=== PATIENT | male | born 1955 | race Caucasian/White ===

== ENCOUNTER 2016-12-29 19:47 | Emergency (ER) | payer BC ==
--- NOTE | 2016-12-29 19:54 | EDM.PDOC ---
ED HPI GI/ABDOMINAL - General Chief Complaint: Abdominal Pain Stated Complaint: POSS KIDNEY STONE Time Seen by Provider: 12/29/16 19:54 - History of Present Illness INITIAL COMMENTS - FREE TEXT/NARRATIVE: 61-year-old male presents to the emergency room with abdominal pain. Patient was diagnosed with a right-sided kidney stone on Tuesday of this week. He 's had problems with kidney stones in the past. In the past urology has needed to be involved to remove the stones. The patient had a CAT scan done on Tuesday which showed an obstructing stone midway down the right ureter entering 3.8 mm he has nonobstructing stones noted in both kidneys he has a single nonobstructing stone on the right small 3 nonobstructing stones on the left largest measuring 6.3 mm. Patient had worsening pain today. Patient's been taking ketorolac 10 mg by mouth as needed for pain and this has not helped and over time. Today the patient had worsening pain 11:00 this morning this is continued to this time he's had 2 episodes of vomiting. The pain is all right-sided he denies any fevers but has felt chilled at times. Past medical history significant for gout he takes allopurinol. He has BPH and takes Flomax 0.4mg 2 tablets daily. - Related Data Allergies/ADRs: Allergies Allergy/AdvReac Type Severity Reaction Status Date / Time No Known Allergies Allergy Verified 12/29/16 19:53 Home Meds: Home Meds Allopurinol [Zyloprim] 300 mg PO DAILY 12/29/16 [History] Ciprofloxacin HCl [Cipro] 250 mg PO BID #14 tablet 12/29/16 [Rx] Tamsulosin HCl [Flomax] 0.4 mg PO DAILY 12/29/16 [History] ED ROS GENERAL - Review of Systems Review Of Systems: See Below Constitutional: Reports: chills (Noted just before and after vomiting). Denies : fever, night sweats, diaphoresis HEENT: Reports: No symptoms Respiratory: Reports: No Symptoms Cardiovascular: Reports: No symptoms GI/Abdominal: Reports: Abdominal pain, Nausea, Vomiting. Denies: Constipation, Diarrhea : Reports: flank pain. Denies: frequency, hematuria, incontinence, urgency Skin: Reports: no symptoms Neurological: Reports: No Symptoms ED EXAM, GI/ABD - Physical Exam Exam: See Below Exam Limited By: No limitations General Appearance: alert, no apparent distress Head: atraumatic, normocephalic Neck: normal inspection, supple, non-tender, full range of motion. No: lymphadenopathy (L), lymphadenopathy (R) Respiratory/Chest: no respiratory distress, lungs clear, normal breath sounds Cardiovascular: regular rate, rhythm, no edema, no murmur GI/Abdominal: normal bowel sounds, soft, other (Patient has right-sided abdominal pain but this has not worsened with palpation no rebound or guarding noted) Back Exam: normal inspection. No: CVA tenderness (L), CVA tenderness (R) Extremities: normal inspection, no pedal edema Course - Vital Signs Last Recorded V/S: Last Vital Signs Temp 36.6 C 12/29/16 19:53 Pulse 88 12/29/16 19:53 Resp 14 12/29/16 19:53 BP 123/85 12/29/16 19:53 Pulse Ox 94 L 12/29/16 19:53 - Orders/Labs/Meds Orders: Active Orders 24 hr Category Date Time Status CULTURE URINE [RM] Stat Lab 12/29/16 20:10 Received Lactated Ringers [Ringers, Lactated] 1,000 ml Med 12/29/16 20:15 Active IV ASDIRECTED Medication Orders Lactated Ringer's (Ringers, Lactated) 1,000 mls @ 125 mls/hr IV ASDIRECTED STEPHANY Last Admin: 12/29/16 20:26 Dose: 125 mls/hr Labs: Laboratory Tests 12/29/16 12/29/16 12/29/16 Range/Units 20:10 20:27 20:27 WBC 11.62 H (4.23-9.07) K/mm3 RBC 5.10 (4.63-6.08) M/mm3 Hgb 15.9 (13.7-17.5) gm/L Hct 44.6 (40.1-51.0) % MCV 87.5 (79.0-92.2) fl MCH 31.2 (25.7-32.2) pg MCHC 35.7 H (32.2-35.5) g/dl RDW Std Deviation 43.1 (35.1-43.9) fL Plt Count 136 L (163-337) K/mm3 MPV 10.6 (9.4-12.3) fl Neutrophils % (Manual) 87 H (40-60) % Band Neutrophils % 0 (0-10) % Lymphocytes % (Manual) 7 L (20-40) % Atypical Lymphs % 1 % Monocytes % (Manual) 4 (2-10) % Eosinophils % (Manual) 0 L (0.8-7.0) % Basophils % (Manual) 1 (0.2-1.2) Platelet Estimate Adequate Plt Morphology Comment Normal RBC Morph Comment Normal Sodium 136 (136-145) mEq/L Potassium 4.3 (3.5-5.1) mEq/L Chloride 101 (98-107) mEq/L Carbon Dioxide 25 (21-32) mEq/L Anion Gap 14.3 (5-15) BUN 11 (7-18) mg/dL Creatinine 1.6 H (0.7-1.3) mg/dL Est Cr Clr Drug Dosing 44.76 mL/min Estimated GFR (MDRD) 44 (>60) mL/min BUN/Creatinine Ratio 6.9 L (14-18) Glucose 114 (80-115) mg/dL Calcium 8.5 (8.5-10.1) mg/dL Total Bilirubin 1.7 H (0.2-1.0) mg/dL AST 20 (15-37) U/L ALT 26 (16-63) U/L Alkaline Phosphatase 69 (46-116) U/L Total Protein 7.1 (6.4-8.2) g/dl Albumin 4.0 (3.4-5.0) g/dl Globulin 3.1 gm/dL Albumin/Globulin Ratio 1.3 (1-2) Urine Color Light yellow (Yellow) Urine Appearance Clear (Clear) Urine pH 7.0 (5.0-8.0) Ur Specific [place] 1.015 (1.005-1.030) Urine Protein Negative (Negative) Urine Glucose (UA) Negative (Negative) Urine Ketones Negative (Negative) Urine Occult Blood Negative (Negative) Urine Nitrite Negative (Negative) Urine Bilirubin Negative (Negative) Urine Urobilinogen 0.2 (0.2-1.0) Ur Leukocyte Esterase Trace H (Negative) Urine RBC Not seen (0-5) /hpf Urine WBC 0-5 (0-5) /hpf Ur Squamous Epith Cells Not seen (0-5) /hpf Urine Bacteria Rare (FEW) /hpf Urine Mucus Not seen (FEW) /hpf Meds: Medications Generic Name Dose Route Start Last Admin Trade Name Dm PRN Reason Stop Dose Admin Lactated Ringer's 1,000 mls @ 125 mls/hr 12/29/16 20:15 12/29/16 20:26 Ringers, Lactated IV 125 mls/hr ASDIRECTED STEPHANY Administration Discontinued Medications Generic Name Dose Route Start Last Admin Trade Name [place] PRN Reason Stop Dose Admin Hydrocodone Bitart/Acetaminophen 1 tab 12/29/16 20:20 12/29/16 20:53 [place] 325-5 Mg PO 12/29/16 20:21 1 tab ONETIME ONE Administration Fentanyl 50 mcg 12/29/16 20:20 12/29/16 20:32 Sublimaze IVPUSH 12/29/16 20:21 50 mcg ONETIME ONE Administration Levofloxacin 250 mg 12/29/16 21:41 12/29/16 21:46 Levaquin PO 12/29/16 21:42 250 mg ONETIME ONE Administration Ondansetron HCl 4 mg 12/29/16 20:20 12/29/16 20:32 Zofran IVPUSH 12/29/16 20:21 4 mg ONETIME ONE Administration - Re-Assessments/Exams Free Text/Narrative Re-Assessment/Exam: 12/29/16 21:55 Patient had lab work obtained his CT from Tuesday was reviewed which revealed a 3.8 mm stone midway down the right ureter he has nonobstructing stones noted in both kidneys. Patient is still symptomatic. Of concern is his creatinine is elevated to 1.6 from 1.1 on Tuesday his ketorolac will be stopped. The patient was started on IV fluids was given Zofran here 50 mcg of fentanyl and a single [place] and feels pretty good at this point. Case discussed with Dr. Nolan transfer station attendant urologist in [place] who recommends followup with his primary on Tuesday we will start him on [place] stop the ketorolac. His urinalysis is not diagnostic of a UTI that may be suggestive urine culture pending patient will be started on Cipro 250 mg twice a day. He is given [place] #20 one or 2 every 4-6 hours when necessary from the machine in the waiting room as well as Zofran 4 mg #10 one every 4-6 hours as needed for nausea and vomiting. Departure - Departure Time of Disposition: 21:47 Disposition: Home, Self-Care 01 Clinical Impression: Right nephrolithiasis Prescriptions: Ciprofloxacin HCl [Cipro] 250 mg PO BID #14 tablet Referrals: Artur Solares MD [Primary Care Provider] - Forms: ED Department Discharge Additional Instructions: Return to emergency room if any questions or problems. Return immediately with the development of fevers or chills or uncontrollable pain. Drink plenty of fluids. Stop the ketorolac, this is the medication your given Tuesday for pain. You have been started on hydrocodone take one or 2 every 4-6 hours as needed for pain. Allow 12 hours after using this medication before driving or returning to work. This medication can cause constipation if using this on a regular basis start Colace 100 mg twice daily, this can be picked up over-the- counter. You been given Zofran one tablet it will dissolve on or under your tongue every 4-6 hours as needed for nausea or vomiting. Followup in the clinic on Tuesday for recheck your kidney function should be rechecked. - My Orders Last 24 Hours: My Active Orders 12/29/16 20:10 CULTURE URINE [RM] Stat 12/29/16 20:15 Lactated Ringers [Ringers, Lactated] 1,000 ml IV ASDIRECTED - Assessment/Plan Last 24 Hours: My Active Orders 12/29/16 20:10 CULTURE URINE [RM] Stat 12/29/16 20:15 Lactated Ringers [Ringers, Lactated] 1,000 ml IV ASDIRECTED
[2016-12-29 20:00] VITALS: BP 123/85
[2016-12-29] MEDS ORDERED: Lactated Ringers 1,000 ML IV SCH (20:15)
[2016-12-29] MEDS ORDERED: fentaNYL 100 MCG/2 ML SDV IVPUSH ONE (20:20)
[2016-12-29] MEDS ORDERED: Acetaminophen/HYDROcodone 325-5 MG Tab PO ONE (20:20)
[2016-12-29] MEDS ORDERED: Ondansetron 4 MG/2 ML SDV IVPUSH ONE (20:20)
[2016-12-29] MEDS ORDERED: Levofloxacin 250 MG Tab PO ONE (21:41)
== END 2016-12-29 22:11 | disposition home or self-care (01) ==
LOC: JD.ED 19:47
DX: M10.9 Gout, unspecified (principal); Z79.899 Other long term (current) drug therapy; N20.0 Calculus of kidney; Z87.442 Personal history of urinary calculi
CPT/HCPCS: 36415; 80053; 81001; 85025; 87086; 96361; 96374; 96375; 99284; A9270; J2405; J3010; J7120

== ENCOUNTER 2020-06-29 18:14 | Emergency (ER) | payer BC, MEDICARE ==
[2020-06-29 18:28] VITALS: PULSE 119
[2020-06-29] MEDS ORDERED: Sodium Chloride 0.9% 10 ML Syringe FLUSH PRN (18:30)
[2020-06-29] MEDS ORDERED: Acetaminophen 325 MG Tab PO ONE (19:21)
--- NOTE | 2020-06-29 19:21 | EDM.PDOC ---
ED HPI GENERAL MEDICAL PROBLEM - General Chief Complaint: Respiratory Problem Stated Complaint: headache tired nausea Time Seen by Provider: 06/29/20 18:28 Source of Information: Reports: Patient History Limitations: Reports: No Limitations - History of Present Illness INITIAL COMMENTS - FREE TEXT/NARRATIVE: Patient is a 64-year-old male presenting to the emergency department with complaints of headache, generalized fatigue, intermittent fevers, shortness of breath with exertion, and occasional nausea. States his symptoms began on Tuesday which is about 5 days ago. He was in [place] about 1 week before the symptoms began. He denies any significant cough but states that when he does cough it is dry and nonproductive. Denies significant shortness of breath while at rest. He has no chronic underlying lung or heart conditions. No one else in his family is sick at this point. Headache Pain Score (Numeric/FACES): 3 - Related Data Allergies Allergy/AdvReac Type Severity Reaction Status Date / Time No Known Allergies Allergy Verified 12/29/16 19:53 Home Meds: Home Meds Allopurinol [Zyloprim] 300 mg PO DAILY 12/29/16 [History] Tamsulosin HCl [Flomax] 0.4 mg PO DAILY 12/29/16 [History] Glucosam/Chondr/Collagn/Hyalur [Glucosamine & Chondroitin Cap] 1 tab PO BID 06/29/20 [History] Multivitamin [Multivitamins] 1 tab PO DAILY 06/29/20 [History] dexAMETHasone [Dexamethasone] 8 mg PO Q12H 3 Days #6 tab 06/29/20 [Rx] Past Medical History HEENT History: Reports: Hard of Hearing, Impaired Vision Genitourinary History: Reports: BPH, Renal Calculus Musculoskeletal History: Reports: Arthritis - Infectious Disease History Infectious Disease History: Reports: Chicken Pox, Measles, Mumps, Shingles - Past Surgical History GI Surgical History: Reports: Cholecystectomy Social & Family History - Family History Family Medical History: Noncontributory - Tobacco Use Smoking Status *Q: Never Smoker - Caffeine Use Caffeine Use: Reports: Tea - Recreational Drug Use Recreational Drug Use: No ED ROS GENERAL - Review of Systems Review Of Systems: See Below Constitutional: Reports: Fever, Chills, Fatigue HEENT: Reports: No Symptoms Respiratory: Reports: Shortness of Breath, Cough. Denies: Wheezing, Pleuritic Chest Pain Cardiovascular: Reports: Dyspnea on Exertion. Denies: Chest Pain, Lightheadedness, Syncope Endocrine: Reports: No Symptoms GI/Abdominal: Reports: Nausea. Denies: Abdominal Pain, Diarrhea, Vomiting : Reports: No Symptoms Musculoskeletal: Reports: Other (mild generalized body aches) Skin: Reports: No Symptoms Neurological: Reports: Headache. Denies: Confusion, Dizziness Psychiatric: Reports: No Symptoms Hematologic/Lymphatic: Reports: No Symptoms Immunologic: Reports: No Symptoms ED EXAM, GENERAL - Physical Exam Exam: See Below General Appearance: Alert, WD/WN, No Apparent Distress Respiratory/Chest: No Respiratory Distress, Lungs Clear, Normal Breath Sounds, No Accessory Muscle Use, Chest Non-Tender Cardiovascular: Normal Peripheral Pulses, Regular Rate, Rhythm, No Edema, No Gallop, No JVD, No Murmur, No Rub GI/Abdominal: Normal Bowel Sounds, Soft, Non-Tender, No Organomegaly, No Distention, No Abnormal Bruit, No Mass Neurological: Alert, Oriented, CN II-XII Intact, Normal Cognition, Normal Gait, Normal Reflexes, No Motor/Sensory Deficits Psychiatric: Normal Affect, Normal Mood Skin Exam: Warm, Dry, Intact, Normal Color, No Rash EKG INTERPRETATION EKG Date: 06/29/20 Time: 18:55 Rhythm: NSR Rate (Beats/Min): 109 [place]: Normal P-Wave: Present QRS: Normal ST-T: Normal QT: Normal TN/PQ Interval: borderline 1st degree AVB EKG Interpretation Comments: Sinus tachycardia @ 109 Borderline first-degree AV block Diffuse early R wave transition Consider left atrial hypertrophy Nonspecific interventricular conduction delay EKG interpreted by Dr. Carol SR. Course - Vital Signs Last Recorded V/S: Last Vital Signs Temp 99.9 F 06/29/20 19:28 Pulse 119 H 06/29/20 18:27 Resp 16 06/29/20 21:40 BP 102/78 06/29/20 21:40 Pulse Ox 95 06/29/20 21:40 - Orders/Labs/Meds Labs: Laboratory Tests 06/29/20 06/29/20 06/29/20 Range/Units 18:48 18:48 18:48 WBC 4.28 (4.23-9.07) K/mm3 RBC 4.92 (4.63-6.08) M/mm3 Hgb 15.6 (13.7-17.5) gm/dl Hct 45.1 (40.1-51.0) % MCV 91.7 D (79.0-92.2) fl MCH 31.7 (25.7-32.2) pg MCHC 34.6 (32.2-35.5) g/dl RDW Std Deviation 45.1 H (35.1-43.9) fL Plt Count 135 L (163-337) K/mm3 MPV 11.1 (9.4-12.3) fl Neut % (Auto) 68.0 H (34.0-67.9) % Lymph % (Auto) 20.3 L (21.8-53.1) % [place] % (Auto) 11.0 (5.3-12.2) % Eos % (Auto) 0 L (0.8-7.0) Baso % (Auto) 0.2 (0.1-1.2) % Neut # (Auto) 2.91 (1.78-5.38) K/mm3 Lymph # (Auto) 0.87 L (1.32-3.57) K/mm3 [place] # (Auto) 0.47 (0.30-0.82) K/mm3 Eos # (Auto) 0.00 L (0.04-0.54) K/mm3 Baso # (Auto) 0.01 (0.01-0.08) K/mm3 D-Dimer, Quantitative 0.39 (0.19-0.50) mg/L Sodium 138 (136-145) mEq/L Potassium 3.7 (3.5-5.1) mEq/L Chloride 102 (98-107) mEq/L Carbon Dioxide 27 (21-32) mEq/L Anion Gap 12.7 (5-15) BUN 12 (7-18) mg/dL Creatinine 1.2 (0.7-1.3) mg/dL Est Cr Clr Drug Dosing 57.38 mL/min Estimated GFR (MDRD) > 60 (>60) mL/min BUN/Creatinine Ratio 10.0 L (14-18) Glucose 131 H (80-115) mg/dL Calcium 8.1 L (8.5-10.1) mg/dL Ferritin (26-388) ng/ml Total Bilirubin 0.7 (0.2-1.0) mg/dL AST 27 (15-37) U/L ALT 39 (16-63) U/L Alkaline Phosphatase 80 (46-116) U/L Lactate Dehydrogenase 199 (85-227) U/L Troponin I < 0.017 (0.00-0.056) ng/mL C-Reactive Protein 6.0 H* (<1.0) mg/dL Total Protein 7.1 (6.4-8.2) g/dl Albumin 3.2 L (3.4-5.0) g/dl Globulin 3.9 gm/dL Albumin/Globulin Ratio 0.8 L (1-2) SARS-CoV-2 RNA (NISHA) (NEGATIVE) 06/29/20 06/29/20 Range/Units 18:48 19:35 WBC (4.23-9.07) K/mm3 RBC (4.63-6.08) M/mm3 Hgb (13.7-17.5) gm/dl Hct (40.1-51.0) % MCV (79.0-92.2) fl MCH (25.7-32.2) pg MCHC (32.2-35.5) g/dl RDW Std Deviation (35.1-43.9) fL Plt Count (163-337) K/mm3 MPV (9.4-12.3) fl Neut % (Auto) (34.0-67.9) % Lymph % (Auto) (21.8-53.1) % [place] % (Auto) (5.3-12.2) % Eos % (Auto) (0.8-7.0) Baso % (Auto) (0.1-1.2) % Neut # (Auto) (1.78-5.38) K/mm3 Lymph # (Auto) (1.32-3.57) K/mm3 [place] # (Auto) (0.30-0.82) K/mm3 Eos # (Auto) (0.04-0.54) K/mm3 Baso # (Auto) (0.01-0.08) K/mm3 D-Dimer, Quantitative (0.19-0.50) mg/L Sodium (136-145) mEq/L Potassium (3.5-5.1) mEq/L Chloride (98-107) mEq/L Carbon Dioxide (21-32) mEq/L Anion Gap (5-15) BUN (7-18) mg/dL Creatinine (0.7-1.3) mg/dL Est Cr Clr Drug Dosing mL/min Estimated GFR (MDRD) (>60) mL/min BUN/Creatinine Ratio (14-18) Glucose (80-115) mg/dL Calcium (8.5-10.1) mg/dL Ferritin 441 H (26-388) ng/ml Total Bilirubin (0.2-1.0) mg/dL AST (15-37) U/L ALT (16-63) U/L Alkaline Phosphatase (46-116) U/L Lactate Dehydrogenase (85-227) U/L Troponin I (0.00-0.056) ng/mL C-Reactive Protein (<1.0) mg/dL Total Protein (6.4-8.2) g/dl Albumin (3.4-5.0) g/dl Globulin gm/dL Albumin/Globulin Ratio (1-2) SARS-CoV-2 RNA (NISHA) Positive H (NEGATIVE) Meds: Medications Discontinued Medications Generic Name Dose Route Start Last Admin Trade Name Freq PRN Reason Stop Dose Admin Acetaminophen 975 mg 06/29/20 19:21 06/29/20 19:28 Tylenol PO 06/29/20 19:22 975 mg NOW ONE Administration Dexamethasone 4 mg 06/29/20 20:52 Dexamethasone PO 06/29/20 20:53 ONETIME ONE Dexamethasone 4 mg 06/29/20 21:21 06/29/20 21:38 Dexamethasone IVPUSH 06/29/20 21:22 4 mg ONETIME ONE Administration Sodium Chloride 10 ml 06/29/20 18:30 06/29/20 19:04 Saline Flush FLUSH 10 ml ASDIRECTED PRN Administration Keep Vein Open - Re-Assessments/Exams Free Text/Narrative Re-Assessment/Exam: 06/29/20 20:52 Hematology was found to be grossly unremarkable with exception of ferritin elevated at 441 and CRP at 6.0. Patient's oxygen saturation for the most part on room air maintain 90 to 93%, however when he would sleep, it would dip to 87 to 90%. Patient was COVID positive. Chest x-ray is negative for any infiltrates. EKG was negative for any acute abnormalities. D-dimer is negative indicating that he does not have blood clots in his lungs. Discussed results with patient. He states that he is comfortable to go home with home O2. We have contacted [employer] to arrange for home oxygen. Case discussed with Dr. Medina. He recommended Dexamethasone 8mg BID x 3 days. I have ordered 4mg IV to be giving tonight and then we will start him on dexamethasone 8 mg twice daily for 3 days. Discussed with him and his that is imperative that if they feel that he is getting worse, that he return to the emergency department for reevaluation. They both agreed to this. Departure - Departure Time of Disposition: 21:15 Disposition: Home, Self-Care 01 Condition: Good Clinical Impression: COVID-19 - Discharge Information *PRESCRIPTION DRUG MONITORING PROGRAM REVIEWED*: No *COPY OF PRESCRIPTION DRUG MONITORING REPORT IN PATIENT ELSIE: No Prescriptions: dexAMETHasone [Dexamethasone] 8 mg PO Q12H 3 Days #6 tab Instructions: COVID-19 Frequently Asked Questions, COVID-19 Referrals: Deigo Young MD [Primary Care Provider] - Forms: ED Department Discharge Additional Instructions: You were seen in the emergency department today for fever, weakness, cough, and shortness of breath. Your work-up included blood work, an EKG of your heart, a chest x-ray, and a COVID test. Results of your labs were found to be overall normal with the exception of you being positive for Covid19. Your chest x-ray was negative for pneumonia. Your EKG was normal. Unfortunately oxygen saturation was on the low end of normal and occasionally passed into the abnormal range. We would like your oxygen to be at least above 90%. Arrangements have been made for you to go home with oxygen. You may go up to 3 L as needed to keep your oxygen above 90%. Recommend that you check your oxygen saturation using the pulse oximeter given intermittently throughout the day. It is OK if you drop below 90% briefly as long as it comes back up quickly. If you find that you have to go up above 3 L to maintain an oxygen over 90%, I would recommend that you return to the emergency department for reevaluation. You have also been started on dexamethasone which is a steroid to help reduce inflammation in your lungs. Take this as prescribed. If you feel like you are worsening in any way or have any concerns, please do not hesitate to return to the emergency department for reevaluation. Sepsis Event Note (ED) - Evaluation Sepsis Screening Result: No Definite Risk
--- NOTE | 2020-06-29 19:57 | CR ---
Chest: Portable view of the chest was obtained. Comparison: No prior chest imaging is available. Heart size and mediastinum are within normal limits for portable technique. Lungs show no acute parenchymal change. Bony structures are grossly intact. Impression: 1. Nothing acute is seen on portable chest x-ray. Diagnostic code #1 This report was dictated in MDT
[2020-06-29] MEDS ORDERED: Dexamethasone 4 MG Tab PO ONE (20:52)
[2020-06-29] MEDS ORDERED: Dexamethasone 4 MG/ML SDV IVPUSH ONE (21:21)
[2020-06-29 21:41] VITALS: BP 102/78
== END 2020-06-29 21:45 | disposition home or self-care (01) ==
LOC: JD.ED 18:14
DX: U07.1 COVID-19 (principal); I44.0 Atrioventricular block, first degree; R00.0 Tachycardia, unspecified; N40.0 Benign prostatic hyperplasia without lower urinary tract symptoms; Z90.49 Acquired absence of other specified parts of digestive tract; Z79.899 Other long term (current) drug therapy
CPT/HCPCS: 36415; 71045; 80053; 82728; 83615; 84484; 85025; 85379; 86140; 87635; 93005; 96374; 99285; A9270; J1100; 93010; 99283; U0002

== ENCOUNTER 2020-07-03 14:05 | Emergency (ER) | payer BC, MEDICARE ==
[2020-07-03 14:38] VITALS: BP 120/83; PULSE 94
[2020-07-03] MEDS ORDERED: Sodium Chloride 0.9% 10 ML Syringe FLUSH PRN (14:59)
[2020-07-03] MEDS ORDERED: Sodium Chloride 0.9% 1,000 ML IV ONE (15:01)
--- NOTE | 2020-07-03 16:01 | EDM.PDOC ---
ED HPI GENERAL MEDICAL PROBLEM - General Chief Complaint: Respiratory Problem Stated Complaint: COVID + SOB AND LOW OXYGEN Time Seen by Provider: 07/03/20 14:37 Source of Information: Reports: Patient History Limitations: Reports: No Limitations - History of Present Illness INITIAL COMMENTS - FREE TEXT/NARRATIVE: The patient presents with cough, fever, chills, shortness of breath and generalized weakness. This has been going no for a week and on Tuesday he was seen her and found to be COVID +. He was given some oxygen and dexamethasone. He has been getting worse. He is requiring more oxygen. He has no medical problems other then arthritis and BPH. He does not smoke. He has not been eating or drinking much. Onset: Gradual Duration: Week(s): Severity: Moderate Improves with: Reports: None Worsens with: Reports: None Associated Symptoms: Reports: Cough, Fever/Chills, Shortness of Breath, Weakness. 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 (see below) Other Treatments FINISHED GARMENT INSPECTOR: 02 - Related Data Allergies Allergy/AdvReac Type Severity Reaction Status Date / Time No Known Allergies Allergy Verified 12/29/16 19:53 Home Meds: Home Meds Allopurinol [Zyloprim] 300 mg PO DAILY 12/29/16 [History] Tamsulosin HCl [Flomax] 0.4 mg PO DAILY 12/29/16 [History] Glucosam/Chondr/Collagn/Hyalur [Glucosamine & Chondroitin Cap] 1 tab PO BID 06/29/20 [History] Multivitamin [Multivitamins] 1 tab PO DAILY 06/29/20 [History] dexAMETHasone [Dexamethasone] 8 mg PO Q12H 3 Days #6 tab 06/29/20 [Rx] Past Medical History HEENT History: Reports: Hard of Hearing, Impaired Vision Genitourinary History: Reports: BPH, Renal Calculus Musculoskeletal History: Reports: Arthritis - Infectious Disease History Infectious Disease History: Reports: Chicken Pox, Measles, Mumps, Shingles - Past Surgical History GI Surgical History: Reports: Cholecystectomy Social & Family History - Family History Family Medical History: Noncontributory - Tobacco Use Smoking Status *Q: Never Smoker - Caffeine Use Caffeine Use: Reports: Tea - Recreational Drug Use Recreational Drug Use: No ED ROS GENERAL - Review of Systems Review Of Systems: See Below Constitutional: Reports: Fever, Chills, Malaise, Weakness, Fatigue HEENT: Reports: No Symptoms Respiratory: Reports: Shortness of Breath, Cough Cardiovascular: Reports: No Symptoms Endocrine: Reports: No Symptoms GI/Abdominal: Reports: No Symptoms : Reports: No Symptoms Musculoskeletal: Reports: No Symptoms ED EXAM, GENERAL - Physical Exam Exam: See Below Exam Limited By: No Limitations General Appearance: Alert, No Apparent Distress Ears: Normal External Exam Nose: Normal Inspection Head: Atraumatic, Normocephalic Neck: Normal Inspection, Supple, Non-Tender Respiratory/Chest: No Respiratory Distress, Decreased Breath Sounds, Rhonchi Cardiovascular: Regular Rate, Rhythm, No Edema, No Murmur GI/Abdominal: Soft, Non-Tender, No Organomegaly, No Mass Back Exam: Normal Inspection Extremities: Normal Inspection Course - Vital Signs Last Recorded V/S: Last Vital Signs Temp 97.5 F 07/03/20 14:36 Pulse 94 07/03/20 14:36 Resp 20 07/03/20 14:36 BP 120/83 07/03/20 14:36 Pulse Ox 99 07/03/20 14:59 - Orders/Labs/Meds Orders: Active Orders 24 hr Category Date Time Status Cardiac Monitoring [RC] . DIRECTED Care 07/03/20 14:59 Active Oxygen Therapy [RC] PRN Care 07/03/20 14:59 Active Peripheral IV Care [RC] . DIRECTED Care 07/03/20 15:00 Active Chest 1V Frontal [CR] Stat Exams 07/03/20 15:00 Taken CULTURE BLOOD [BC] Stat Lab 07/03/20 15:23 Received CULTURE BLOOD [BC] Stat Lab 07/03/20 15:36 Received Sodium Chloride 0.9% [Saline Flush] Med 07/03/20 14:59 Active 10 ml FLUSH ASDIRECTED PRN Blood Culture x2 Reflex Set [OM.PC] Stat Oth 07/03/20 15:00 Ordered Peripheral IV Insertion Adult [OM.PC] Stat Oth 07/03/20 14:59 Ordered Medication Orders Sodium Chloride (Saline Flush) 10 ml FLUSH ASDIRECTED PRN PRN Reason: Keep Vein Open Last Admin: 07/03/20 15:55 Dose: 10 ml Documented by: [email or web address] Labs: Laboratory Tests 10/01/20 10/01/20 10/01/20 Range/Units 15:23 15:23 15:23 WBC 10.60 H (4.23-9.07) K/mm3 RBC 5.00 (4.63-6.08) M/mm3 Hgb 15.7 (13.7-17.5) gm/dl Hct 46.5 (40.1-51.0) % MCV 93.0 H (79.0-92.2) fl MCH 31.4 (25.7-32.2) pg MCHC 33.8 (32.2-35.5) g/dl RDW Std Deviation 44.7 H (35.1-43.9) fL Plt Count 166 (163-337) K/mm3 MPV 10.6 (9.4-12.3) fl Neut % (Auto) 88.7 H (34.0-67.9) % Lymph % (Auto) 5.2 L (21.8-53.1) % [place] % (Auto) 5.1 L (5.3-12.2) % Eos % (Auto) 0 L (0.8-7.0) Baso % (Auto) 0.2 (0.1-1.2) % Neut # (Auto) 9.40 H (1.78-5.38) K/mm3 Lymph # (Auto) 0.55 L (1.32-3.57) K/mm3 [place] # (Auto) 0.54 (0.30-0.82) K/mm3 Eos # (Auto) 0.00 L (0.04-0.54) K/mm3 Baso # (Auto) 0.02 (0.01-0.08) K/mm3 Manual Slide Review Abnormal smear D-Dimer, Quantitative 0.69 H (0.19-0.50) mg/L Sodium 137 (136-145) mEq/L Potassium 4.2 (3.5-5.1) mEq/L Chloride 99 (98-107) mEq/L Carbon Dioxide 32 (21-32) mEq/L Anion Gap 10.2 (5-15) BUN 16 (7-18) mg/dL Creatinine 1.0 (0.7-1.3) mg/dL Est Cr Clr Drug Dosing 68.85 mL/min Estimated GFR (MDRD) > 60 (>60) mL/min BUN/Creatinine Ratio 16.0 (14-18) Glucose 105 (80-115) mg/dL Lactic Acid (0.4-2.0) mmol/L Calcium 8.8 (8.5-10.1) mg/dL Ferritin (26-388) ng/ml Total Bilirubin 1.2 H (0.2-1.0) mg/dL AST 37 (15-37) U/L ALT 72 H (16-63) U/L Alkaline Phosphatase 70 (46-116) U/L Lactate Dehydrogenase 239 H (85-227) U/L C-Reactive Protein 15.8 H* (<1.0) mg/dL Total Protein 7.5 (6.4-8.2) g/dl Albumin 2.8 L (3.4-5.0) g/dl Globulin 4.7 gm/dL Albumin/Globulin Ratio 0.6 L (1-2) 07/03/20 07/03/20 Range/Units 15:23 15:23 WBC (4.23-9.07) K/mm3 RBC (4.63-6.08) M/mm3 Hgb (13.7-17.5) gm/dl Hct (40.1-51.0) % MCV (79.0-92.2) fl MCH (25.7-32.2) pg MCHC (32.2-35.5) g/dl RDW Std Deviation (35.1-43.9) fL Plt Count (163-337) K/mm3 MPV (9.4-12.3) fl Neut % (Auto) (34.0-67.9) % Lymph % (Auto) (21.8-53.1) % [place] % (Auto) (5.3-12.2) % Eos % (Auto) (0.8-7.0) Baso % (Auto) (0.1-1.2) % Neut # (Auto) (1.78-5.38) K/mm3 Lymph # (Auto) (1.32-3.57) K/mm3 [place] # (Auto) (0.30-0.82) K/mm3 Eos # (Auto) (0.04-0.54) K/mm3 Baso # (Auto) (0.01-0.08) K/mm3 Manual Slide Review D-Dimer, Quantitative (0.19-0.50) mg/L Sodium (136-145) mEq/L Potassium (3.5-5.1) mEq/L Chloride (98-107) mEq/L Carbon Dioxide (21-32) mEq/L Anion Gap (5-15) BUN (7-18) mg/dL Creatinine (0.7-1.3) mg/dL Est Cr Clr Drug Dosing mL/min Estimated GFR (MDRD) (>60) mL/min BUN/Creatinine Ratio (14-18) Glucose (80-115) mg/dL Lactic Acid 1.5 (0.4-2.0) mmol/L Calcium (8.5-10.1) mg/dL Ferritin 1375 H (26-388) ng/ml Total Bilirubin (0.2-1.0) mg/dL AST (15-37) U/L ALT (16-63) U/L Alkaline Phosphatase (46-116) U/L Lactate Dehydrogenase (85-227) U/L C-Reactive Protein (<1.0) mg/dL Total Protein (6.4-8.2) g/dl Albumin (3.4-5.0) g/dl Globulin gm/dL Albumin/Globulin Ratio (1-2) Meds: Medications Generic Name Dose Route Start Last Admin Trade Name Freq PRN Reason Stop Dose Admin Sodium Chloride 10 ml 07/03/20 14:59 07/03/20 15:55 Saline Flush FLUSH 10 ml ASDIRECTED PRN Administration Keep Vein Open Discontinued Medications Generic Name Dose Route Start Last Admin Trade Name Freq PRN Reason Stop Dose Admin Dexamethasone 6 mg 07/03/20 18:14 07/03/20 18:47 Dexamethasone IVPUSH 07/03/20 18:15 6 mg ONETIME ONE Administration Sodium Chloride 1,000 mls @ 1,000 mls/hr 07/03/20 15:01 07/03/20 15:55 Normal Saline IV 07/03/20 16:00 1,000 mls/hr ONETIME ONE Administration Remdesivir 200 mg/ Sodium 250 mls @ 250 mls/hr 07/03/20 18:16 07/03/20 18:49 Chloride IV 07/03/20 18:17 250 mls/hr ONETIME ONE Administration - Re-Assessments/Exams Free Text/Narrative Re-Assessment/Exam: 07/03/20 19:39 I ordered oxygen, IV saline lock, CXR, labs, blood cultures and lactic acid. His CXR shows diffuse patchy airspace opacities noted throughout the lungs bilaterally. Findings consistent with edema, viral or atypical pneumonia. Other etiologies are not excluded. His WBC was elevated at 10.6. His D-dimer was elevated at 0.69. His ferritin went up to 1355. His ALT is elevated at 72. His LDH was elevated at 239. His CRP is elevated at 15.8. All of his COVID markers are elevated. I have ordered dexamethasone and remdesivir 200mg loading dose. He needs to be admitted. We have no beds here. There are no beds in [facility]. I called [facility] in [place] and talked with the hospitalist waterfront director Dr James and he agreed to the admission. 07/03/20 19:44 He will need to fly because it is to far by ground. Departure - Departure Time of Disposition: 19:45 Disposition: DC/Tfer to [facility] 02 Condition: Serious Clinical Impression: COVID-19, Pneumonia due to COVID-19 virus, Hypoxia - Discharge Information Referrals: Diego Young MD [Primary Care Provider] - Forms: ED Department Discharge Sepsis Event Note (ED) - Evaluation Sepsis Screening Result: No Definite Risk - Focused Exam Vital Signs: Vital Signs Temp Pulse Resp BP Pulse Ox Pulse Ox 07/03/20 14:59 99 07/03/20 14:36 97.5 F 94 20 120/83 98 - My Orders Last 24 Hours: My Active Orders 07/03/20 14:59 Cardiac Monitoring [RC] . DIRECTED Oxygen Therapy [RC] PRN Sodium Chloride 0.9% [Saline Flush] 10 ml FLUSH ASDIRECTED PRN Peripheral IV Insertion Adult [OM.PC] Stat 07/03/20 15:00 Peripheral IV Care [RC] . DIRECTED Chest 1V Frontal [CR] Stat Blood Culture x2 Reflex Set [OM.PC] Stat 07/03/20 15:23 CULTURE BLOOD [BC] Stat 07/03/20 15:36 CULTURE BLOOD [BC] Stat - Assessment/Plan Last 24 Hours: My Active Orders 07/03/20 14:59 Cardiac Monitoring [RC] . DIRECTED Oxygen Therapy [RC] PRN Sodium Chloride 0.9% [Saline Flush] 10 ml FLUSH ASDIRECTED PRN Peripheral IV Insertion Adult [OM.PC] Stat 07/03/20 15:00 Peripheral IV Care [RC] . DIRECTED Chest 1V Frontal [CR] Stat Blood Culture x2 Reflex Set [OM.PC] Stat 07/03/20 15:23 CULTURE BLOOD [BC] Stat 07/03/20 15:36 CULTURE BLOOD [BC] Stat
[2020-07-03] MEDS ORDERED: Dexamethasone 4 MG/ML SDV IVPUSH ONE (18:14)
== END 2020-07-03 21:19 ==
LOC: JD.ED 14:05
DX: U07.1 COVID-19 (principal); J12.89 Other viral pneumonia; N40.0 Benign prostatic hyperplasia without lower urinary tract symptoms; M19.90 Unspecified osteoarthritis, unspecified site; R09.02 Hypoxemia; Z79.899 Other long term (current) drug therapy
CPT/HCPCS: 36415; 71045; 80053; 82728; 83605; 83615; 85025; 85379; 86140; 87040; 96361; 96365; 96375; 99285; J1100; J7030; J7050; 99284